=== PATIENT | female | born 1995 | race Two or more races ===

== ENCOUNTER 2024-06-30 10:26 | Emergency (ER) | payer OTHER ==
[~2024-06-30] VITALS: Ht 170.2 cm; Wt 117.9 kg
[2024-06-30] MEDS ORDERED: KETOROLAC TROMETHAMINE 30 MG VIAL ONE (10:57)
[2024-06-30] MEDS ORDERED: BARIUM SULFATE 450 ML ORAL.SUSP PO ONE (10:57)
[2024-06-30] MEDS ORDERED: KETOROLAC TROMETHAMINE 30 MG VIAL IV ONE (11:00)
[2024-06-30 11:26] LABS: HEMATOCRIT 36.9 % (36.0-45.00); HEMOGLOBIN 11.9 g/dL (12.0-15.00); MEAN CELL VOLUME 68.9 fL (80.00-100.00); MEAN CORPUSCULAR HEMOGLOBIN 22.3 pg (27.00-32.0); MEAN CORPUSCULAR HGB CONC 32.3 g/dl (32.0-36.0); PLATELET COUNT 322 K/uL (150-450); RED BLOOD COUNT 5.35 M/uL (4.00-6.00); RED CELL DISTRIBUTION WIDTH 16.9 % (11.5-14.5)
[2024-06-30 12:02] LABS: CALCIUM 9.3 mg/dL (8.5-10.1); CREATININE SERUM 0.79 mg/dL (0.55-1.02); GFR 87.3; POTASSIUM 4.06 mEq/L (3.5-5.1)
[2024-06-30 13:13] LABS: PH,URINE 7.5 (5.0-8.0); URINE BILIRRUBIN Negative (NEGATIVE); URINE BLOOD Negative; URINE COLOR Yellow; URINE GLUCOSE Negative (NEGATIVE); URINE KETONE Negative (NEGATIVE); URINE LEUKOCYTE Small; URINE NITRATE Negative; URINE PROTEIN Negative (NEGATIVE); URINE UROBILINOGEN 0.2 E.U./dl
[2024-06-30 13:17] LABS: URINE BACTERIA 4157.6 uL (0.0-1933); URINE EPITHELIAL CELLS 89.7 uL (0.0-38.8); URINE RBC 11.6 uL (0.0-20.8); URINE WBC 95.7 uL (0.0-23.2)
[2024-06-30 13:34] LABS: URINE APPEARANCE CLEAR; URINE CAST 0.29 uL (0.0-1.40)
== END 2024-06-30 15:58 | disposition home or self-care (01) ==
LOC: ER 10:29
PROVIDERS: Emergency Medicine
DX: R10.9 Unspecified abdominal pain (principal)